=== PATIENT | female | born 1955 | race American Indian/Alaskan Native ===

== ENCOUNTER → 2018-10-02 | Outpatient (CLI) | payer BC | LOC: RAD 09:06 | DX: R92.2 Inconclusive mammogram (principal) ==

== ENCOUNTER 2018-10-06 09:16 | Outpatient (CLI) | payer BC | END 2018-10-06 09:17 | disposition home or self-care (01) | LOC: RAD 09:16 | DX: R91.1 Solitary pulmonary nodule (principal) ==